=== PATIENT | female | born 1980 ===

== ENCOUNTER 2017-12-27 15:27 | Emergency (ER) | payer OTHER ==
[2017-12-27 15:57] VITALS: BP 111/63; PULSE 62; RESP 18; TEMP 98.8; O2SAT 99
[2017-12-27] MEDS ORDERED: Sodium Chloride 0.9% 1,000 ML IV STA (16:20)
--- NOTE | 2017-12-27 16:30 | ED PDOC ---
HPI: Abdomen Time Seen by Provider: 12/27/17 16:13 Chief Complaint (Nursing): Abdominal Pain Chief Complaint (Provider): abdominal pain History Per: Patient History/Exam Limitations: no limitations Onset/Duration Of Symptoms: Days (x3) Current Symptoms Are (Timing): Still Present Location Of Pain/Discomfort: LUQ Quality Of Discomfort: "Pain" Associated Symptoms: Nausea, Vomiting. denies: Fever, Chills Additional Complaint(s): Mag Scruggs is a 37 year old female, with no significant past medical history, who presents to the emergency department complaining of LUQ abdominal pain onset for x3 days associated with nausea and vomiting. Patient denies any diarrhea, fever, chills or bleeding. No further medical complaints. PMD: None provided. Past Medical History Reviewed: Historical Data, Nursing Documentation, Vital Signs Vital Signs: Last Vital Signs Temp 98.8 F 12/27/17 15:54 Pulse 62 12/27/17 15:54 Resp 18 12/27/17 15:54 BP 111/63 12/27/17 15:54 Pulse Ox 99 12/27/17 16:31 - Medical History PMH: No Chronic Diseases - Surgical History Surgical History: Appendectomy - Family History Family History: States: No Known Family Hx - Social History Current smoker - smoking cessation education provided: No Alcohol: None Drugs: Denies - Allergies Allergies/Adverse Reactions: Allergies Allergy/AdvReac Type Severity Reaction Status Date / Time No Known Allergies Allergy Verified 12/27/17 15:54 Review of Systems ROS Statement: Except As Marked, All Systems Reviewed And Found Negative Constitutional: Negative for: Fever, Chills Gastrointestinal: Positive for: Nausea, Vomiting, Abdominal Pain (LUQ). Negative for: Diarrhea, Hematochezia Physical Exam - Reviewed Nursing Documentation Reviewed: Yes Vital Signs Reviewed: Yes - Physical Exam Appears: Positive for: Non-toxic, No Acute Distress Head Exam: Positive for: ATRAUMATIC, NORMOCEPHALIC Skin: Positive for: Normal Color, Warm, Dry Eye Exam: Positive for: Normal appearance Neck: Positive for: Painless ROM Cardiovascular/Chest: Positive for: Regular Rate, Rhythm. Negative for: Murmur Respiratory: Positive for: Normal Breath Sounds. Negative for: Respiratory Distress Gastrointestinal/Abdominal: Positive for: Tenderness (LUQ) Back: Positive for: Normal Inspection. Negative for: L CVA Tenderness, R CVA Tenderness, Vertebral Tenderness Extremity: Positive for: Normal ROM (all extremities). Negative for: Deformity , Swelling Neurologic/Psych: Positive for: Alert, Oriented. Negative for: Motor/Sensory Deficits - Laboratory Results Result Diagrams: 12/27/17 16:32 12/27/17 16:32 - ECG O2 Sat by Pulse Oximetry: 99 (RA) Pulse Ox Interpretation: Normal Medical Decision Making Medical Decision Making: Initial Plan: --CMP --Urine dipstick --Urine --CBC w/ differential --Pepcid 20 mg IVP --Sodium Chloride 1,000 ml IV 100 mls/hr --Zofran ODT 4 mg PO --Reevaluation Pelvic US reveals 7 week IUP but no cardiac activity. No ectopic seen. Beta HCG [id number]. will have pt return 2 days and repeat beta to ascertain activity. Scribe Attestation: Documented by James Gonsales, acting as a scribe for Leon Grande MD Provider Scribe Attestation: All medical record entries made by the Scribe were at my direction and personally dictated by me. I have reviewed the chart and agree that the record accurately reflects my personal performance of the history, physical exam, medical decision making, and the department course for this patient. I have also personally directed, reviewed, and agree with the discharge instructions and disposition. Disposition - Clinical Impression Clinical Impression: Threatened miscarriage - Patient ED Disposition Is Patient to be Admitted: No Counseled Patient/Family Regarding: Studies Performed, Diagnosis, Need For Followup - Disposition [facility]errals[facility] Disposition: Routine/Home Disposition Time: 18:12 Condition: FAIR Additional Instructions: Regressa a emergencia en2 wasserman para repetir la sonograma y las pruebas de stacey Instructions: Threatened Miscarriage Forms: [employer] (Khmer) Print Language: CROATIAN
[2017-12-27 16:39] LABS: BASO # 0.1 K/uL (0.0-0.2); BASO % 0.7 % (0.0-2.0); EOS # 0.1 K/uL (0.0-0.7); EOS % 1.7 % (0.0-4.0); HEMOGLOBIN 10.4 g/dL (12.0-16.0); LYMPH # 1.8 K/uL (1.0-4.3); LYMPH % 25.3 % (20.0-40.0); MEAN CORPUSCULAR HEMOGLOBIN 24.1 pg (27.0-31.0); MEAN CORPUSCULAR HGB CONC 32.1 g/dL (33.0-37.0); MEAN PLATELET VOLUME 8.2 fl (7.2-11.7); MONO # 0.7 K/uL (0.0-0.8); MONO % 10.7 % (0.0-10.0); NEUT # 4.3 K/uL (1.8-7.0); NEUT % 61.6 % (50.0-75.0); RBC 4.34 Mil/uL (3.80-5.20); RED CELL DISTRIBUTION WIDTH 18.9 % (11.5-14.5)
[2017-12-27 16:50] LABS: ALB/GLOB RATIO 1.2 (1.0-2.1); ALBUMIN 3.7 g/dL (3.5-5.0); ALT/SGPT 29 U/L (9-52); AST/SGOT 20 U/L (14-36); BLOOD UREA NITROGEN 12 mg/dl (7-17); CALCIUM 8.9 mg/dL (8.4-10.2); GFR AFRICAN-AMERICAN > 60; GFR NON-AFRICAN AMERICAN > 60
--- NOTE | 2017-12-27 18:02 | US ---
PROCEDURE: First trimester ultrasound HISTORY: r/o ectopic COMPARISON: None available. TECHNIQUE: Standard protocol for this study/examination. FINDINGS: LMP: Unknown Beta HCG results: Unknown Prior examinations from the current : None TECHNIQUE: Real-time 2D imaging, duplex and color Doppler. FINDINGS: Cardiac activity: Absent Measurements: [place] rump length: 0.80 cm Gestational age based on CRL 6 weeks 5 days Gestational age 7 weeks 6 status based on gestational sac measurement 2.94 cm Gestational age derived from LMP: Cannot be ascertained based in the absence of a reliable/ known LMP ARI based on LMP: Cannot be ascertained based in the absence of a reliable/ known LMP ARI based on biometry: 08/2018 Gestational concordance documented Yolk sac identified Uterus: Unremarkable. Cervix: No Cervical abnormalities: Negative examination for cervical dilatation or effacement. Closed cervix measuring 4.34 cm Subchorionic hemorrhage: None UTERUS: 4.9 x 7.3 x 10.1 cm. ADNEXA: Right: 1.4 x 1.7 x 2.3 cm. Normal Doppler arterial waveform documented. Left: 1.8 x 2.2 x 2.5 cm. Normal Doppler arterial waveform documented Fluid in the cul-de-sac: None IMPRESSION: Seven weeks 2 days intrauterine gestation. Cardiac activity is not documented. No visible ectopic gestation.
== END 2017-12-27 18:27 | disposition home or self-care (01) ==
LOC: H.ER 15:27
DX: O20.0 Threatened abortion (principal); Z3A.01 Less than 8 weeks gestation of pregnancy
CPT/HCPCS: 76817; 80053; 81025; 84702; 85025; 86850; 86900; 96374; 99283; J7040